=== PATIENT | male | born 1985 | race Caucasian/White ===

== ENCOUNTER 2018-09-11 17:31 | Emergency (ER) | payer MEDICAID, OTHER ==
[~2018-09-11] VITALS: Ht 182.9 cm; Wt 122.5 kg
[~2018-09-11 17:31] MED LIST: ACET-787 PO; DIAZ5TAB7 PO
[2018-09-11 17:39] VITALS: BP 150/96
--- NOTE | 2018-09-11 17:41 | NUR ---
SITE WRAPPED WITH BANDAGE. ICE PACK GIVEN TO PT. PT TO WAIT IN ER LOBBY FOR AVAILABLE BED
--- NOTE | 2018-09-11 17:46 | NUR ---
PT AMB TO BED 4 WITH STEADY GAIT
--- NOTE | 2018-09-11 17:46 | NUR ---
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 MULTIPLE, SUPERFICIAL LACERATIONS PRESENT TO PATIENTS BASE OF FINGERS APPROX HALF CM LONG. BLEEDING CONTROLLED. PAIN 5/10. LAST TDAP APPROX 10 YEARS AGO. [id number]. BED IS DOWN, LOCKED, BED RIAL X 1, ERMD TO SEE PT. PMH- HTN
--- NOTE | 2018-09-11 17:48 | NUR ---
DR GAMBOA AT BEDSIDE
--- NOTE | 2018-09-11 18:08 | NUR ---
PT SIGNED CONSENT FOR TDAP, VACCINE ADMINISTERED. PT TOLERATED WELL.
--- NOTE | 2018-09-11 18:10 | NUR ---
WOUND CARE COMPLETED BY ALIS FELICIANO
[2018-09-11 18:12] VITALS: BP 149/97
--- NOTE | 2018-09-11 18:12 | NUR ---
PT INSTRUCTED TO WAIT IN ER LOBBY FOR ANY ADVERSE REACTIONS
--- NOTE | 2018-09-11 18:12 | NUR ---
Patient discharged with v/s stable. Written and verbal after care instructions given and explained. PT INSTRUCTED TO KEEP SITE CLEAN. Patient verbalized understanding. Ambulatory with steady gait. All questions addressed prior to discharge. Advised to follow up with PMD. PT ADVISED TO USE OTC MOTRIN AND TYLENOL FOR PAIN.
== END 2018-09-11 18:12 | disposition home or self-care (01) ==
LOC: MED 17:31
DX: S61.412A Laceration without foreign body of left hand, initial encounter (principal); I10 Essential (primary) hypertension; F17.210 Nicotine dependence, cigarettes, uncomplicated; Z88.5 Allergy status to narcotic agent; Z79.899 Other long term (current) drug therapy; Z90.49 Acquired absence of other specified parts of digestive tract; Z90.89 Acquired absence of other organs; W31.89XA Contact with other specified machinery, initial encounter; Y93.89 Activity, other specified; Y92.89 Other specified places as the place of occurrence of the external cause; Y99.8 Other external cause status
CPT/HCPCS: 12001; 90471; 90715; 99283